=== PATIENT | male | born 1950 | race Caucasian/White ===

== ENCOUNTER → 2017-10-27 | Day surgery (SDC) | payer OTHER ==
[~2017-10-27] VITALS: Ht 175.3 cm; Wt 106.6 kg
--- NOTE | 2017-10-27 12:32 | Proc Note Cardiology ---
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 He has an implanted dual-chamber pacemaker which was noted to be at MARYANN on his most recent interrogation. He was therefore scheduled for an elective pacemaker generator change. Under usual sterile conditions at the [facility] operating room, the patient was prepped and draped. Following conscious sedation, the previous pacemaker pocket was anesthetized using subcutaneous lidocaine and Marcaine injection. The pacemaker pocket was incised and the existing pulse generator was explanted. Explanted generator: [employer] model [id number], serial #[id number]. The device leads were then attached to a new pulse generator. Implanted generator: [employer] model [id number], serial #[id number]. The leads were then interrogated through the new device: Atrial lead: [employer] model 98862, serial #[id number] Sensed P waves: 4.5 mV, impedance 480 ohms, capture threshold 0.7 v Ventricular lead: [employer] model #4058, serial number [id number] Sensed R waves: None mV, impedance: 330 ohms, capture threshold: 1.8 v The device was then positioned inside the existing pacemaker pocket. The deep fascial layers were closed using 2.0 Polysorb. Superficial layers were closed using 4-0 Polysorb. The patient tolerated the procedure well and was recovered in the postoperative area.
== END ==
LOC: STS 01:17
DX: Z45.018 Encounter for adjustment and management of other part of cardiac pacemaker (principal); I47.1 Supraventricular tachycardia; I10 Essential (primary) hypertension
CPT/HCPCS: C1785-KX; J0690; J2001; J2250